=== PATIENT | female | born 2000 | race Caucasian/White ===

== ENCOUNTER 2021-11-14 13:54 | Emergency (ER) | payer BC, SELFPAY ==
[2021-11-14 14:03] VITALS: BP 183/104; PULSE 112; RESP 20; TEMP 36.4; O2SAT 96; BMI 53.4
--- NOTE | 2021-11-14 14:08 | US_ITS ---
WS: [id number] EARLY OBSTETRICAL ULTRASOUND (<14 WEEKS). HISTORY: vaginal bleeding COMPARISON: None available. Difficult evaluation due to body habitus. Transvaginal imaging is performed. Uterus is anteverted. There is a large amount of shadowing from th e anterior uterus which may be due to poor contact during the ultrasound. A fibroid would be somewhat unusual in a patient of this age. Endometrium is heterogeneous, enlarged and thickened. There is a v param tiny fluid collection within the endometrium. No pole or cardiac activity is identified. No free fluid. LEFT ovary measures 2.5 x 1.3 x 2.9 cm. RIGHT ovary measures 2.7 x 2.3 x 1.5 cm. US/US OB <=14 wk fetus w transvag IMPRESSION: 1. Quality is limited by body habitus. 2. Thickened endometrium with a small cystic area in the endometrial canal. Th e small cystic area may be a very early intrauterine gestation. There is no fet al pole or cardiac activity at this time. Recommend follow-up imaging in 10-14 days to confirm intrauterine gestation. No intrauterine gestation identified th erefore ectopic cannot be excluded.
--- NOTE | 2021-11-14 16:12 | ED_ITS ---
HPI - General Adult General: Chief complaint: Vaginal Bleeding Stated complaint: ; bleeding Time Seen by Provider: 11/14/21 16:09 History of Present Illness: Patient is a 21-year-old female at 5 weeks by LMP presenting to the emergency room for evaluation of vaginal bleeding and passage of clots x3 days. Patient first noticed vaginal bleeding 3 days ago and now acutely worsened. Patient denies pelvic cramps. Patient denies any abdominal pain, nausea/vomiting fever/chills, complaints, new vaginal discharge at this time. Patient follows up with an OB provider from [place]. No other focal complaints at this time. Onset:3 days ago Duration:3 days Location:home Severity:moderate Associated symptoms: Deny chest pain, dyspnea, nausea, rash, palpitations or vomiting Review of Systems Const: Denies: fever(s) or chills Eyes: Denies: change in vision ENMT: Denies: mouth pain Card: Denies: chest pain or palpitations Resp: Denies: dyspnea or non-productive cough GI: Denies: abdominal pain, nausea, vomiting or diarrhea : Reports: other (+vaginal bleeding); Denies: dysuria Musc: Denies: extremity pain Skin/Breast: Denies: rash or new lesions Neuro: Denies: weakness in extremities Psych: Reports: other (Normal mood) Vamsi/Lymph: Denies: easy bruising PFSH ED 2 PFSH: Medical History No pertinent past medical history Social History Smoking and tobacco status: never smoked Alcohol intake: never Physical Exam Const: COMMON NORMALS: alert HENMT: COMMON NORMALS: atraumatic HEAD & SCALP: atraumatic MOUTH: moist mucous membranes not abnormal Eye: COMMON NORMALS: EOMs intact bilaterally and conjunctivae normal CONJUNCTIVA: Yes conjunctivae normal Neck/C-Spine: COMMON NORMALS: full ROM and supple Resp: COMMON NORMALS: normal respiratory effort and clear to auscultation bilaterally AUSCULTATION: clear to auscultation bilaterally Cardio: COMMON NORMALS: regular rate RATE: regular rate GI: COMMON NORMALS: Soft to palpation and non-tender PALPATION: Yes Soft to palpation : OTHER: Pelvic exam: Exam supervised by Nora ugarte: No signs of active extravasation of vaginal bleeding, no heavy bleeding, os appears to be closed, mild streaks of blood noted in the vaginal vault Extremity: COMMON NORMALS: full ROM Neuro: SENSORIUM/ORIENTATION: Yes alert MOTOR EXAM: No Abnormal motor strength present and Other motor observations present (no focal motor deficits) Psych: COMMON NORMALS: speech normal SPEECH: Yes normal speech MOOD & AFFECT: Yes euthymic mood Course Vital Signs: Vital signs: Vital Signs Temperature 97.6 F 11/14/21 14:03 Pulse Rate 112 H 11/14/21 14:03 Respiratory Rate 20 H 11/14/21 14:03 Blood Pressure 183/104 11/14/21 14:03 Pulse Oximetry 96 11/14/21 14:03 [facility] - General Adult Medical Decision Making 21-year-old female G1, P0 at 5 weeks by LMP presenting to emergency room with 3 days of vaginal bleeding with passage of clots. On physical exam, pelvic exam showed no signs of active extravasation or heavy bleeding. Mild streaks of blood in the vaginal vault. Cervical OS is closed. Ultrasound shows gestational sac without any confirmed IUP. Patient has a beta of greater than 3000. This is either concerning for an threatened miscarriage v ersus an ectopic . Patient is given close follow-up in the next 48-70 hours for repeat beta-hCG. Patient is Rh+, no need for Rhogam today. Disposition: Discharge. Patient counseled regarding diagnostic impression, treatment plan. Patient given ED strict return precautions to return for co ntinuation, worsening, or development of new symptoms. Instructed to f/u w/ OB provider regarding symptoms today. Patient verbalized understanding. Lab Data : 11/14/21 18:09 11/14/21 15:46 Radiology Impressions Obstetrics Ultrasound 11/14/21 14:08 IMPRESSION: 1. Quality is limited by body habitus. 2. Thickened endometrium with a small cystic area in the endometrial canal. The small cystic area may be a very early intrauterine gestation. There is no pole or cardiac activity at this time. Recommend follow-up imaging in 10-14 days to confirm intrauterine gestation. No intrauterine gestation identified therefore ectopic cannot be excluded. Laboratory Results WBC 13.5 10^3/uL (4.5-13.0) H 11/14/21 18:09 Corrected WBC Cancelled 11/14/21 15:46 RBC 5.25 10^6/uL (4.1-5.3) 11/14/21 18:09 Hgb 13.9 g/dL (11.5-15.3) 11/14/21 18:09 Hct 42.4 % (37.0-47.0) 11/14/21 18:09 MCV 80.8 fl (81-99) L 11/14/21 18:09 MCH 26.5 pg (28.0-34.0) L 11/14/21 18:09 MCHC 32.8 g/dL (30.0-36.0) 11/14/21 18:09 RDW 14.0 % (12.1-15.1) 11/14/21 18:09 Plt Count 507 10^3/cmm (130-400) H 11/14/21 18:09 MPV 10.5 fL (7.4-10.4) H 11/14/21 18:09 Gran % Cancelled 11/14/21 15:46 Neut % (Auto) 67.2 % 11/14/21 18:09 Lymph % (Auto) 24.9 % 11/14/21 18:09 [place] % (Auto) 6.4 % 11/14/21 18:09 Eos % (Auto) 0.7 % 11/14/21 18:09 Baso % (Auto) 0.4 % 11/14/21 18:09 Neut # (Auto) 9.07 10^3/uL (1.8-8.0) H 11/14/21 18:09 Lymph # (Auto) 3.4 10^3/uL (1.5-6.5) 11/14/21 18:09 [place] # (Auto) 0.9 10^3/uL (0.2-0.9) 11/14/21 18:09 Eos # (Auto) 0.1 10^3/uL (0.0-0.8) 11/14/21 18:09 Baso # (Auto) 0.1 10^3/uL (0.0-0.1) 11/14/21 18:09 Absolute Gran (auto) Cancelled 11/14/21 15:46 Nucleated RBC % (auto) 0 % 11/14/21 18:09 Nucleated RBCs # 0.0 /100WBC 11/14/21 18:09 Sodium Cancelled 11/14/21 15:46 Potassium Cancelled 11/14/21 15:46 Chloride Cancelled 11/14/21 15:46 Carbon Dioxide Cancelled 11/14/21 15:46 Anion Gap Cancelled 11/14/21 15:46 BUN Cancelled 11/14/21 15:46 Creatinine Cancelled 11/14/21 15:46 GFR Calculation Cancelled 11/14/21 15:46 Glucose Cancelled 11/14/21 15:46 Calculated Osmolality Cancelled 11/14/21 15:46 Calcium Cancelled 11/14/21 15:46 Total Bilirubin Cancelled 11/14/21 15:46 AST Cancelled 11/14/21 15:46 ALT Cancelled 11/14/21 15:46 Alkaline Phosphatase Cancelled 11/14/21 15:46 Total Protein Cancelled 11/14/21 15:46 Albumin Cancelled 11/14/21 15:46 Globulin Cancelled 11/14/21 15:46 Lipase Cancelled 11/14/21 15:46 Ser , Semi-Qnt Cancelled 11/14/21 15:46 Blood Type A Positive 11/14/21 18:09 Rho(D) Type Positive 11/14/21 18:09 Imaging Data Other Imaging: Radiologist's impression: [place] [address] Ultrasound Report Signed Patient: Iwona Adames Unit #: [id number] : 2000 Age/Sex: 21 / F ADM Date: 11/14/21 Loc: ER Room/Bed: Attending Dr: Ordering Provider/Ordering MD: Jonathan Fox MD Date of Service: 11/14/21 Procedure(s): US OB <=14 wk fetus w transvag Accession Number(s): [id number] Report Number: [id number] WS: [id number] ?EARLY OBSTETRICAL ULTRASOUND (<14 WEEKS). HISTORY: vaginal bleeding COMPARISON: None available. Difficult evaluation due to body habitus. Transvaginal imaging is performed. Uterus is anteverted. There is a large amount of shadowing from the anterior uterus which may be due to poor contact during the ultrasound. A fibroid would be somewhat unusual in a patient of this age. Endometrium is heterogeneous, enlarged and thickened. There is a very tiny fluid collection within the endometrium. No pole or cardiac activity is identified. No free fluid. LEFT ovary measures 2.5 x 1.3 x 2.9 cm. RIGHT ovary measures 2.7 x 2.3 x 1.5 cm. US/US OB <=14 wk fetus w transvag IMPRESSION: ? 1.? Quality is limited by body habitus. 2.? Thickened endometrium with a small cystic area in the endometrial canal. The small cystic area may be a very early intrauterine gestation. There is no pole or cardiac activity at this time. Recommend follow-up imaging in 10-14 days to confirm intrauterine gestation. No intrauterine gestation identified therefore ectopic cannot be excluded. ? Dictated By: Sabi Schafer DO Signed By: Sabi Schafer DO Signed Date/Time: 11/14/21 1510 DD/ 1506 Discharge Plan Discharge Patient Disposition: Home Clinical Impression: of unknown anatomic location Condition: Stable Prescriptions: No Action No Known Home Medications 0RF Discharge Orders: Discharge ED (Routine); Ordered 11/14/21 Ordered By: Jonathan Fox Discharge Diet: Advance as tolerated Discharge Activity: Increase activity as tolerated Activity Restrictions/Additional Instructions: Follow-up with your OB provider in the next 3 days. Come back to the emergency room notes heavy bleeding, abdominal pain, nausea/vomiting fever/chills, or any new concerning complaints. Stand Alone Forms: Work/School Release Coding Level of Care Code ED Sandblasting Supervisor for Felicia Fwd Exam Comprehensive
[2021-11-14 18:37] LABS: Basophils # 0.1 10^3/uL (0.0-0.1); Basophils % 0.4 %; Eosinophils # 0.1 10^3/uL (0.0-0.8); Eosinophils % 0.7 %; Hematocrit 42.4 % (37.0-47.0); Hemoglobin 13.9 g/dL (11.5-15.3); Lymphocytes # 3.4 10^3/uL (1.5-6.5); Lymphocytes % 24.9 %; Mean Corpuscular HGB Conc 32.8 g/dL (30.0-36.0); Mean Corpuscular Hemoglobin 26.5 pg (28.0-34.0); Mean Corpuscular Volume 80.8 fl (81-99); Mean Platelet Volume 10.5 fL (7.4-10.4); Monocytes # 0.9 10^3/uL (0.2-0.9); Monocytes % 6.4 %; Neutrophils # 9.07 10^3/uL (1.8-8.0); Neutrophils % 67.2 %; Nucleated Red Blood Cells % 0 %; Platelet Count 507 10^3/cmm (130-400); Red Blood Count 5.25 10^6/uL (4.1-5.3); White Blood Count 13.5 10^3/uL (4.5-13.0)
== END 2021-11-14 19:35 | disposition home or self-care (01) ==
PROVIDERS: Emergency Provider Emergency Medicine
DX: O26.891 Other specified pregnancy related conditions, first trimester (principal); Z3A.00 Weeks of gestation of pregnancy not specified
CPT/HCPCS: 36415; 76801; 76817; 85025; 86900; 99283; E0352

== ENCOUNTER 2021-11-17 12:48 | Emergency (ER) | payer BC, SELFPAY ==
[2021-11-17 13:16] VITALS: BP 150/83; PULSE 72; RESP 14; TEMP 37.2; O2SAT 98; BMI 53.7
--- NOTE | 2021-11-17 14:05 | ED_ITS ---
HPI - General Adult General: Chief complaint: General Medical Stated complaint: bleeding, recheck labs per Dr. LOVETT Time Seen by Provider: 11/17/21 14:04 History of Present Illness: Patient is a 21-year-old female that is 5 weeks gestation and returns to the ED for repeat labs. She was instructed to come back here to the ED to have her hCG quant levels checked. She denies any vaginal bleeding today and says it has completely resolved. She endorsed passing some clots and having some heavy bleeding yesterday. She denies any current symptoms, such as fevers, chills, abdominal pain, nausea/vomiting, vaginal discharge, dysuria or hematuria. Associated symptoms: Deny chest pain, dyspnea, headache(s), nausea, rash, palpitations or vomiting Review of Systems Const: Denies: fever(s), chills or fatigue Eyes: Denies: change in vision or eye discomfort ENMT: Denies: throat pain, odynophagia, nasal discharge or nasal congestion Card: Denies: chest pain, palpitations, edema, swelling of feet/ankles, dyspnea on exertion or orthopnea Resp: Denies: dyspnea, productive cough or non-productive cough GI: Denies: abdominal pain, nausea, vomiting, diarrhea, constipation or hematochezia : Denies: flank pain, dysuria or hematuria Musc: Denies: neck pain, back pain or extremity swelling Skin/Breast: Denies: rash or new lesions Neuro: Denies: headache(s), numbness in extremities or weakness in extremities PFS ED PFSH: Medical History No pertinent past medical history Social History Smoking and tobacco status: never smoked Alcohol intake: never Physical Exam Const: COMMON NORMALS: no acute distress, patient oriented x3, healthy appearing and alert GENERAL APPEARANCE: cooperative and comfortable HENMT: COMMON NORMALS: normocephalic HEAD & SCALP: normocephalic MOUTH: Normal oral and palatal mucosa present THROAT: posterior oropharynx normal and uvula midline Neck/C-Spine: COMMON NORMALS: supple GENERAL: Yes normal visual inspection Resp: COMMON NORMALS: normal respiratory effort, No retractions, No use of accessory muscles and clear to auscultation bilaterally AUSCULTATION: clear to auscultation bilaterally Cardio: COMMON NORMALS: regular rate, regular rhythm, S1 normal heart sound present, S2 normal heart sound present, No gallops present (Cardio), No clicks present (Cardio), No murmurs present (Cardio) and Peripheral pulses 2+ throughout RATE: regular rate RHYTHM: regular rhythm HEART SOUNDS: S1 normal heart sound present and S2 normal heart sound present PERIPHERAL PULSES: Peripheral pulses 2+ throughout GI: COMMON NORMALS: Normal to inspection, nondistended, normoactive bowel sounds present, Soft to palpation, non-tender and no masses PALPATION: Yes Soft to palpation : COMMON NORMALS: Yes no CVA tenderness BLADDER/KIDNEY EXAM: Yes no CVA tenderness Back/Pelvis: COMMON NORMALS: no CVA tenderness Extremity: COMMON NORMALS: normal to inspection Neuro: COMMON NORMALS: patient oriented x3 and moves all extremities SENSORIUM/ORIENTATION: Yes alert Skin: GENERAL SKIN EXAM: dry skin Course Vital Signs: Vital signs: Vital Signs Temperature 98.9 F 11/17/21 13:16 Pulse Rate 72 11/17/21 13:16 Respiratory Rate 14 11/17/21 13:16 Blood Pressure 150/83 11/17/21 13:16 Pulse Oximetry 98 11/17/21 13:16 [facility] - General Adult Medical Decision Making Patient is a 21-year-old female that is 5 weeks gestation and returns to the ED for repeat labs. She was instructed to come back here to the ED to have her hCG quant levels checked. She denies any vaginal bleeding today and says it has completely resolved. She endorsed passing some clots and having some heavy bleeding yesterday. She denies any current symptoms, such as fevers, chills, abdominal pain, nausea/vomiting, vaginal discharge, dysuria or hematuria. Vitals are stable and exam was benign. hCG quant was 427 which is down from the previous hCG level of 3000 3 days ago back on November 14. Patient currently has no symptoms and is stable for discharge home. She has an appointment with her OB doctor this coming November 20 and I told her to have her hCG levels rechecked again at that appointment. Return to ED precautions given. Patient understood and agreed with plan. Lab Data I reviewed the patient's lab results. : 11/17/21 15:02 11/17/21 16:19 Laboratory Results WBC Cancelled 11/17/21 15:02 Corrected WBC Cancelled 11/17/21 15:02 RBC Cancelled 11/17/21 15:02 Hgb Cancelled 11/17/21 15:02 Hct Cancelled 11/17/21 15:02 MCV Cancelled 11/17/21 15:02 MCH Cancelled 11/17/21 15:02 MCHC Cancelled 11/17/21 15:02 RDW Cancelled 11/17/21 15:02 Plt Count Cancelled 11/17/21 15:02 MPV Cancelled 11/17/21 15:02 Gran % Cancelled 11/17/21 15:02 Neut % (Auto) Cancelled 11/17/21 15:02 Lymph % (Auto) Cancelled 11/17/21 15:02 [place] % (Auto) Cancelled 11/17/21 15:02 Eos % (Auto) Cancelled 11/17/21 15:02 Baso % (Auto) Cancelled 11/17/21 15:02 Neut # (Auto) Cancelled 11/17/21 15:02 Lymph # (Auto) Cancelled 11/17/21 15:02 [place] # (Auto) Cancelled 11/17/21 15:02 Eos # (Auto) Cancelled 11/17/21 15:02 Baso # (Auto) Cancelled 11/17/21 15:02 Absolute Gran (auto) Cancelled 11/17/21 15:02 Nucleated RBC % (auto) Cancelled 11/17/21 15:02 Nucleated RBCs # Cancelled 11/17/21 15:02 Sodium 139 mmol/L (136-145) 11/17/21 16:19 Potassium 3.5 mmol/L (3.5-5.1) 11/17/21 16:19 Chloride 101 mmol/L (98-107) 11/17/21 16:19 Carbon Dioxide 25 mmol/L (22-29) 11/17/21 16:19 Anion Gap 16.5 (5-19) 11/17/21 16:19 BUN 6 mg/dL (6-20) 11/17/21 16:19 Creatinine 0.6 mg/dL (0.5-0.9) 11/17/21 16:19 GFR Calculation 127.5 mL/min (90-130) 11/17/21 16:19 Glucose 69 mg/dL (65-115) 11/17/21 16:19 Calculated Osmolality 284 mOsm/kg (285-295) L 11/17/21 16:19 Calcium 9.4 mg/dL (8.5-10.5) 11/17/21 16:19 Total Bilirubin 0.3 mg/dL (0.15-1.2) 11/17/21 16:19 AST 14 U/L (0-32) 11/17/21 16:19 ALT 23 U/L (0-33) 11/17/21 16:19 Alkaline Phosphatase 89 IU/L (35-105) 11/17/21 16:19 Total Protein 8.6 g/dL (6.6-8.7) 11/17/21 16:19 Albumin 4.8 g/dL (3.5-5.2) 11/17/21 16:19 Globulin 3.8 g/dL (1.3-4.6) 11/17/21 16:19 Ser , Semi-Qnt 427.10 mIU/mL 11/17/21 15:02 Discharge Plan Discharge Patient Disposition: Home Clinical Impression: , spontaneous threatened Condition: Stable Prescriptions: No Action No Known Home Medications 0RF Discharge Orders: Discharge ED (Routine); Ordered 11/17/21 Ordered By: Tee Garcia Discharge Diet: Regular Discharge Activity: Increase activity as tolerated Patient Instructions: Miscarriage (ED), Threatened Miscarriage (ED) Activity Restrictions/Additional Instructions: Follow-up with medical provider as directed. Follow-up with your MMI TEACHER doctor at your next scheduled appointment this coming Saturday. I recommend having anot her hCG quant level checked at your doctor's office on Saturday as well. Return to the ER or your medical provider if condition worsens. Please read and understand discharge instructions. Thank you for choosing [facility] for your healthcare needs today. Please realize this is an emergency room and that we are providing you with a medical screening exam and this may not be complete and all inclusive of all the testing and or work up that you may need to determine your ailment or severity of your illness. It is very important that you follow up as instructed or that you return to the Emergency Department should you have concerns or if your condition changes or worsens in any way. Coding Level of Care Code ED Advertisement Distributor for Chg Fwd Exam Comprehensive
[2021-11-17 16:43] LABS: Alanine Aminotransferase 23 U/L (0-33); Albumin Level 4.8 g/dL (3.5-5.2); Alkaline Phosphatase 89 IU/L (35-105); Anion Gap 16.5 (5-19); Aspartate Amino Transferase 14 U/L (0-32); Blood Urea Nitrogen 6 mg/dL (6-20); Calcium 9.4 mg/dL (8.5-10.5); Carbon Dioxide 25 mmol/L (22-29); Chloride 101 mmol/L (98-107); Globulin 3.8 g/dL (1.3-4.6); Glomerular Filtration Rate 127.5 mL/min (90-130); Glucose 69 mg/dL (65-115); Osmolality Calculated 284 mOsm/kg (285-295); Potassium 3.5 mmol/L (3.5-5.1); Sodium 139 mmol/L (136-145); Total Bilirubin 0.3 mg/dL (0.15-1.2); Total Protein 8.6 g/dL (6.6-8.7)
== END 2021-11-17 17:01 | disposition home or self-care (01) ==
PROVIDERS: Emergency Provider Physician Assistant
DX: O20.0 Threatened abortion (principal); Z3A.01 Less than 8 weeks gestation of pregnancy
CPT/HCPCS: 36415; 80053; 84702; 85025; 99282

== ENCOUNTER 2022-06-02 11:37 | Emergency (ER) | payer BC, MEDICAID, SELFPAY ==
[2022-06-02 11:39] VITALS: BP 153/71; PULSE 91; RESP 19; TEMP 36.9; O2SAT 99; BMI 52.2
--- NOTE | 2022-06-02 12:08 | W.ED.PREGNAN ---
HPI - General: Chief complaint: Vaginal Bleeding Stated complaint: 6 weeks , vaginal bleeding Time Seen by Provider: 06/02/22 11:46 Source: patient Mode of arrival: ambulatory Limitations: no limitations History of Present Illness: 21-year-old female is currently 5 to 6 weeks states she had some spotting last night states she has had no bleeding today but wanted to be checked out because she has had 1 previous miscarriage she denies any pain has no complaints at this time denies any dysuria or vaginal discharge. Associated symptoms: Deny abdominal pain, dysuria, headache(s), nausea or vomiting Review of Systems Const: Denies: fever(s), chills, body aches or change in appetite Eyes: Denies: blurry vision or eye discomfort ENMT: Denies: throat pain or dental pain Card: Denies: chest pain Resp: Denies: dyspnea GI: Denies: abdominal pain, nausea, vomiting or diarrhea : Reports: vaginal bleeding; Denies: dysuria Musc: Denies: neck pain or back pain Skin/Breast: Denies: rash Neuro: Denies: headache(s) Psych: Denies: depression Vamsi/Lymph: Denies: easy bruising All/Imm: Denies: urticaria PFSH ED PFSH: Medical History No pertinent past medical history Social History Smoking and tobacco status: never smoked Alcohol intake: never Physical Exam Const: COMMON NORMALS: no acute distress, patient oriented x3 and healthy appearing HENMT: COMMON NORMALS: normocephalic and atraumatic HEAD & SCALP: normocephalic and atraumatic Eye: COMMON NORMALS: Equal, round and reactive pupils present and EOMs intact bilaterally PUPIL: Yes Equal, round and reactive pupils present Neck/C-Spine: COMMON NORMALS: full ROM and supple Chest: COMMONS NORMALS: normal inspection of the chest and normal palpation of entire chest wall Resp: COMMON NORMALS: normal respiratory effort, No retractions, No use of accessory muscles and clear to auscultation bilaterally AUSCULTATION: clear to auscultation bilaterally Cardio: COMMON NORMALS: regular rate, regular rhythm and No murmurs present (Cardio) RATE: regular rate RHYTHM: regular rhythm GI: COMMON NORMALS: Normal to inspection, nondistended, normoactive bowel sounds present, Soft to palpation, non-tender and no masses PALPATION: Yes Soft to palpation Extremity: COMMON NORMALS: normal to inspection and full ROM Neuro: COMMON NORMALS: patient oriented x3, moves all extremities and no focal motor deficits Psych: COMMON NORMALS: mental status grossly normal, Normal thought process present and cooperative THOUGHT PROCESS: Normal thought process present Skin: COMMON NORMALS: no rashes or lesions noted and no wounds GENERAL SKIN EXAM: no rashes or lesions noted Course Vital Signs: Vital signs: Vital Signs Temperature 98.5 F 06/02/22 11:39 Pulse Rate 91 06/02/22 11:39 Respiratory Rate 19 H 06/02/22 11:39 Blood Pressure 153/71 06/02/22 11:39 Pulse Oximetry 99 06/02/22 11:39 Oxygen Delivery Me thod 06/02/22 11:39 MDM - OB/Uterine Contractions Medical Decision Making Patient presents here with a threatened miscarriage ultrasound did not see an IUP likely not a viable she has minimal bleeding here we will get her follow-up with OB she is to have repeat quant and ultrasound in 2 to 4 days return here if worsening she understands agrees to plan. Lab Data 06/02/22 12:20 Laboratory Results WBC 9.2 10^3/uL (4.5-13.0) 06/02/22 12:20 RBC 5.52 10^6/uL (4.1-5.3) H 06/02/22 12:20 Hgb 14.0 g/dL (11.5-15.3) 06/02/22 12:20 Hct 44.0 % (37.0-47.0) 06/02/22 12:20 MCV 79.7 fl (81-99) L 06/02/22 12:20 MCH 25.4 pg (28.0-34.0) L 06/02/22 12:20 MCHC 31.8 g/dL (30.0-36.0) 06/02/22 12:20 RDW 14.1 % (12.1-15.1) 06/02/22 12:20 Plt Count 564 10^3/cmm (130-400) H 06/02/22 12:20 MPV 9.7 fL (7.4-10.4) 06/02/22 12:20 Neut % (Auto) 65.2 % 06/02/22 12:20 Lymph % (Auto) 27.5 % 06/02/22 12:20 [place] % (Auto) 5.8 % 06/02/22 12:20 Eos % (Auto) 1.0 % 06/02/22 12:20 Baso % (Auto) 0.4 % 06/02/22 12:20 Neut # (Auto) 5.99 10^3/uL (1.8-8.0) 06/02/22 12:20 Lymph # (Auto) 2.5 10^3/uL (1.5-6.5) 06/02/22 12:20 [place] # (Auto) 0.5 10^3/uL (0.2-0.9) 06/02/22 12:20 Eos # (Auto) 0.1 10^3/uL (0.0-0.8) 06/02/22 12:20 Baso # (Auto) 0.0 10^3/uL (0.0-0.1) 06/02/22 12:20 Nucleated RBC % (auto) 0 % 06/02/22 12:20 Nucleated RBCs # 0.0 /100WBC 06/02/22 12:20 Ser , Semi-Qnt 9539.00 mIU/mL 06/02/22 12:20 Discharge Plan Discharge Patient Disposition: Home Clinical Impression: Threatened Condition: Stable Prescriptions: No Action No Known Home Medications Discharge Orders: Discharge ED (Routine); Ordered 06/02/22 Ordered By: Tatyana Ponce Referrals: Jayla Perales MD [Physician] - 1-3 days Discharge Diet: Advance as tolerated Discharge Activity: Resume usual activity Patient Instructions: Threatened Miscarriage (ED) Coding Level of Care Code ED Junk Removal Specialist for Chg Fwd Exam Comprehensive
--- NOTE | 2022-06-02 12:12 | USR_ITS ---
PROCEDURE INFORMATION: Exam: US First Trimester, Transabdominal Exam date and time: 06/02/2022 12:56 PM Age: 21 years old Clinical indication: Lmp or gestational age (in weeks): 04/21/2022; Other: Bleeding; ; Additional info: Threatened miscarriage LABS AND CLINICAL REPORTS: Last menstrual period start date: 04/21/2022 Gestational age (Established): 6 w 0 d Estimated due date (Established): 01/26/2023 TECHNIQUE: Imaging protocol: Real-time transabdominal obstetrical ultrasound of the maternal pelvis and a first trimester , less than 14 weeks 0 days, with image documentation. COMPARISON: US OB <=14 wk fetus w transvag 11/14/2021 2:24 PM FINDINGS: GESTATION: Gestation: Intrauterine gestational sac, no yolk sac or pole Embryonic/ heart rate: No heart rate visible Extra-embryonic membranes/Placenta: Unremarkable. No subchorionic bleed. Amniotic fluid: Amniotic fluid are normal for gestational age. BIOMETRY: Gestational age (AUA): 6 w 1 d Mean sac diameter: 1.3 cm. EGA (MSD) is 6 w 1 d MATERNAL: Uterus: Uterus measures 5.8 cm x 10.4 cm x 3.7 cm. Endometrium: 13.9 mm Cervix: Unremarkable. Right ovary/adnexa: 3.7 cm x 3.6 cm x 1.9 cm Left ovary/adnexa: 2.8 cm x 1.6 cm x 2.6 cm Intraperitoneal space: No intraperitoneal free fluid. . US/US OB <= 14 weeks fetus [id number] IMPRESSION: 1. Intrauterine gestational sac, no pole or yolk sac 2. Gestational age by sac size is 6 weeks 1 day 3. Unremarkable uterine myometrium. 4. Normal bilateral ovaries
[2022-06-02 12:28] LABS: Basophils % 0.4 %; Eosinophils # 0.1 10^3/uL (0.0-0.8); Lymphocytes # 2.5 10^3/uL (1.5-6.5); Lymphocytes % 27.5 %; Mean Corpuscular HGB Conc 31.8 g/dL (30.0-36.0); Mean Corpuscular Hemoglobin 25.4 pg (28.0-34.0); Mean Corpuscular Volume 79.7 fl (81-99); Mean Platelet Volume 9.7 fL (7.4-10.4); Monocytes # 0.5 10^3/uL (0.2-0.9); Monocytes % 5.8 %; Neutrophils # 5.99 10^3/uL (1.8-8.0); Neutrophils % 65.2 %; Nucleated Red Blood Cells % 0 %; Platelet Count 564 10^3/cmm (130-400); Red Blood Count 5.52 10^6/uL (4.1-5.3); Red Cell Distribution Width 14.1 % (12.1-15.1); White Blood Count 9.2 10^3/uL (4.5-13.0)
[2022-06-02 13:33] VITALS: BP 118/70; PULSE 78; RESP 18; O2SAT 98
--- NOTE | 2022-06-04 09:14 | DCPLANNER ---
Addendum entered by Aminta Oropeza 06/29/22 08:31: manager finance received the following message from the [facility] regarding follow up appointment: Our log operations coordinator attempted to call patient on 06/04/22, but reports patient hung up on her and would never answer the phone again, letter mailed that same day on 06/04/22 and no response from patient so referral cancelled//JS Addendum entered by Aminta Oropeza 06/05/22 10:27: manager finance received the following message from the front office staff at [facility] regarding follow up appointment: Tried to call pt. As soon as I said what clinic I was with, pt hungup the phone. I tried to call pt back and got no answer. I will mail a letter today, I do not think she wants to be seen. Original Note: manager finance had message to schedule a follow up appointment for patient with [facility]. manager finance sent patients information to the front office staff at [facility]. Patients information will be printed and reviewed. Clinic will call patient with appointment information.
== END 2022-06-02 13:34 | disposition home or self-care (01) ==
PROVIDERS: Emergency Provider Emergency Medicine
DX: O20.0 Threatened abortion (principal); Z3A.01 Less than 8 weeks gestation of pregnancy
CPT/HCPCS: 36415; 76801; 84702; 85025; 99284

== ENCOUNTER → 2025-03-30 10:08 | Outpatient (BNVA) | payer MEDICAID, SELFPAY | PROVIDERS: Visit Provider Obstetrics & Gynecology | DX: E28.2 Polycystic ovarian syndrome (principal); Z3A.15 15 weeks gestation of pregnancy | CPT/HCPCS: 80307; 83036; 84315; 85025; 86592; 86762; 86803; 86850; 86900; 87086; 87340; 87491; 87591; 87661; 87806; 88175 ==

== ENCOUNTER → 2025-04-30 09:47 | Outpatient (BNVA) | payer BC, MEDICAID, SELFPAY | PROVIDERS: Visit Provider Obstetrics & Gynecology | DX: Z32.01 Encounter for pregnancy test, result positive (principal); Z3A.21 21 weeks gestation of pregnancy | CPT/HCPCS: 84315 ==